=== PATIENT | female | born 1980 | race Two or more races ===

== ENCOUNTER 2022-05-06 21:20 | Emergency (ER) | payer OTHER ==
[~2022-05-06] VITALS: Ht 157.5 cm; Wt 120.2 kg
== END 2022-05-06 22:52 | disposition home or self-care (01) ==
LOC: ER 21:20
DX: J06.9 Acute upper respiratory infection, unspecified (principal); Z20.822 Contact with and (suspected) exposure to COVID-19

== ENCOUNTER 2023-05-06 14:33 | Emergency (ER) | payer OTHER ==
[~2023-05-06] VITALS: Ht 160 cm; Wt 104.3 kg
[2023-05-06 18:21] LABS: HEMATOCRIT 33.6 % (36.0-45.00); HEMOGLOBIN 10.8 g/dL (12.0-15.00); MEAN CELL VOLUME 73.8 fL (80.00-100.00); MEAN CORPUSCULAR HEMOGLOBIN 23.7 pg (27.00-32.0); MEAN CORPUSCULAR HGB CONC 32.2 g/dl (32.0-36.0); PLATELET COUNT 270 K/uL (150-450); RED BLOOD COUNT 4.55 M/uL (4.00-6.00); RED CELL DISTRIBUTION WIDTH 17.7 % (11.5-14.5)
[2023-05-06] MEDS ORDERED: QC TUSSIN DM L118 ML PO (18:34)
[2023-05-06] MEDS ORDERED: LEVALBUTER1.25 MG/3 IH (18:34)
[2023-05-06] MEDS ORDERED: FLONASE16 GM NASAL (18:34)
[2023-05-06] MEDS ORDERED: BUDESONIDE0.5 MG/2 M IH (18:34)
== END 2023-05-06 18:53 | disposition home or self-care (01) ==
LOC: ER 14:34
PROVIDERS: Nurse Practitioner Family
DX: U07.1 COVID-19 (principal)

== ENCOUNTER 2024-05-22 00:26 | Emergency (ER) | payer OTHER ==
[~2024-05-22] VITALS: Ht 154.9 cm; Wt 120.2 kg
[~2024-05-22 00:26] MED LIST: BUDESONIDE0.5 MG/2 M IH; FLONASE16 GM NASAL; LEVALBUTER1.25 MG/3 IH; QC TUSSIN DM L118 ML PO
[2024-05-22] MEDS ORDERED: KETOROLAC TROMETHAMINE 60 MG VIAL IM STA (01:06)
[2024-05-22] MEDS ORDERED: KETOROLAC TROMETHAMINE 60 MG VIAL IM ONE (01:30)
[2024-05-22] MEDS ORDERED: KETO10TA2 PO (02:16)
== END 2024-05-22 02:23 | disposition home or self-care (01) ==
LOC: ER 00:29
DX: S46.911A Strain of unspecified muscle, fascia and tendon at shoulder and upper arm level, right arm, initial encounter (principal); X58.XXXA Exposure to other specified factors, initial encounter; Y93.89 Activity, other specified; Y92.89 Other specified places as the place of occurrence of the external cause; Y99.9 Unspecified external cause status